=== PATIENT | male | born 1995 | race African-American/Black ===

== ENCOUNTER 2017-01-25 20:04 | Emergency (ER) | payer OTHER ==
--- NOTE | ~2017-01-25 | CR20 ---
[facility] A Service of [facility] & [facility] / [facility] RADIOLOGY TEXT RESULTS PATIENT: JOSE MCCAULEY LOCATION: CFTX : [birth year] UNIT #: [id number] AGE: [address]: Rey Smith SEX: M ORDER DR: [id number] [facility] [address] [place], [place] [address] [id number] MR#: [id number] Acc #: [id number] NAME: JOSE MCCAULEY : 1995 SEX: M STUDY DATE/TIME: 01/25/2017 20:44 UNIT: [facility] ROOM: STUDY DESCRIPTION: CR Ankle Min 3 Views Lt Attending Physician: Rey Smith P.A.-C. Ordering Physician: Rey Smith P.A.-C. Primary Care Physician: Primary Care Physician No MEDICAL IMAGING REPORT This report is preliminary unless electronic signature is present EXAM Left ankle series 01/25/2017 HISTORY Jumping and fell wrong tonight. Pain and swelling. FINDINGS AP, lateral and oblique radiographs of the left ankle are presented. Normal bony mineralization. No traumatic fracture or malalignment. Ankle mortise joint normally located. Soft tissue swelling anterior and lateral aspects of the ankle. There is no soft tissue defect, subcutaneous air or radiodense foreign body. No joint effusion seen. Dictated by... Rey Macedo M.D. THIS IS AN ELECTRONICALLY VERIFIED REPORT Rey Macedo M.D. at 01/26/2017 8:14 AM BRUNA/kaleigh TD: 01/26/2017 06:31 JOB #: [id number] MEDICAL IMAGING REPORT Page 1 of 1 COPY
== END 2017-01-25 21:33 | disposition home or self-care (01) ==
LOC: CFTX 20:04 → CED 20:04 → CFTX 20:50
DX: S93.402A Sprain of unspecified ligament of left ankle, initial encounter (principal); W18.30XA Fall on same level, unspecified, initial encounter; Y92.9 Unspecified place or not applicable
CPT/HCPCS: 29540; 73610; 99283

== ENCOUNTER 2017-03-03 02:21 | Emergency (ER) | payer OTHER | END 2017-03-03 04:58 | disposition left against medical advice (07) | LOC: CED 02:21 | DX: Z53.21 Procedure and treatment not carried out due to patient leaving prior to being seen by health care provider (principal) ==